=== PATIENT | female | born 1935 | race Caucasian/White ===

== ENCOUNTER 2021-07-19 15:24 | Observation (INO) | payer MEDICARE ==
[2021-07-19 16:01] LABS: #Basophils 0.1 10x3/uL (0.0-0.2); #Eosinphils 0.2 10x3/uL (0.0-0.5); #Monocytes 0.8 10x3/uL (0.0-1.1); #Neutrophils 6.2 10x3/uL (1.5-8.4); %Basophils 0.5 % (0.0-2.0); %Eosinophils 1.5 % (0.0-6.0); %Lymphocytes 27.4 % (18.0-47.0); %Monocytes 8.2 % (0.0-10.0); %Neutrophils 62.1 % (40.0-75.0); Hemoglobin 13.6 g/dL (12.0-15.5); Mean Corpuscular HGB CONC 33.4 g/dL (32.0-36.0); Mean Corpuscular Volume 89.8 fl (81.6-98.3); Platelet Count 202 10x3/uL (150-450); RBC Distribution Width 13.2 % (11.5-14.5); Red Blood Cell (RBC) Count 4.53 10x6/uL (3.90-5.03)
[2021-07-19 16:14] LABS: ALT (SGPT) 16 U/L (8-55); AST (SGOT) 20 U/L (5-34); Albumin 4.1 g/dL (3.4-4.8); Alkaline Phosphatase 64 U/L (40-110); Anion Gap 14 mmol/L (10-20); BUN (Urea Nitrogen) 13 mg/dL (9.8-20.1); Bilirubin, Total 0.3 mg/dL (0.2-1.2); Calc. Creatinine Clearance 0 mL/min (70-130); Calcium 9.5 mg/dL (7.8-10.44); Carbon Dioxide 25 mmol/L (23-31); Chloride 107 mmol/L (98-107); Globulin 2.6 g/dL (2.4-3.5); Glucose 103 mg/dL (83-110); Protein, Total 6.7 g/dL (5.8-8.1); Sodium 142 mmol/L (136-145)
[2021-07-19] MEDS ORDERED: Aspirin Chewable 81 MG TAB ONE (16:44)
[2021-07-19] MEDS ORDERED: Lorazepam 2 MG/ML VIAL ONE (16:45)
[2021-07-19 20:11] VITALS: BMI 28.0
[2021-07-19 20:23] LABS: SARS-CoV-2 NAA Rapid Test DETECTED (NotDetected)
[2021-07-19] MEDS ORDERED: Acetaminophen 325 MG TAB PO PRN (22:29)
[2021-07-19] MEDS ORDERED: Atorvastatin Calcium 40 MG TAB PO SCH (22:45)
[2021-07-19] MEDS ORDERED: Lisinopril 5 MG TAB PO SCH (23:00)
[2021-07-20 04:07] LABS: #Basophils 0.1 10x3/uL (0.0-0.2); #Eosinphils 0.2 10x3/uL (0.0-0.5); #Monocytes 0.8 10x3/uL (0.0-1.1); #Neutrophils 3.1 10x3/uL (1.5-8.4); %Basophils 0.9 % (0.0-2.0); %Eosinophils 3.3 % (0.0-6.0); %Lymphocytes 40.5 % (18.0-47.0); %Monocytes 10.7 % (0.0-10.0); %Neutrophils 44.5 % (40.0-75.0); Anion Gap 13 mmol/L (10-20); BUN (Urea Nitrogen) 11 mg/dL (9.8-20.1); Calc. Creatinine Clearance 62 mL/min (70-130); Calcium 8.5 mg/dL (7.8-10.44); Carbon Dioxide 22 mmol/L (23-31); Cardiac Risk 3.9 (Less than 4.5); Chloride 110 mmol/L (98-107); Cholesterol 223 mg/dl (< 200 Desired); Glucose 86 mg/dL (83-110); HDL Cholesterol 57 mg/dL (>60 Neg Risk); LDL Cholesterol, Calculated 145 mg/dL; Mean Corpuscular HGB CONC 33.1 g/dL (32.0-36.0); Mean Corpuscular Hemoglobin 29.6 pg (27.0-33.0); Mean Corpuscular Volume 89.2 fl (81.6-98.3); Mean Platelet Volume 11.5 fl (7.4-10.4); Platelet Count 177 10x3/uL (150-450); Potassium 3.8 mmol/L (3.5-5.1); RBC Distribution Width 13.5 % (11.5-14.5); Red Blood Cell (RBC) Count 4.06 10x6/uL (3.90-5.03); Sodium 141 mmol/L (136-145); Triglycerides 105 mg/dL (Less than 150)
[2021-07-20] MEDS ORDERED: Lorazepam 2 MG/ML VIAL SLOW IVP SCH (08:00)
[2021-07-20] MEDS ORDERED: Enoxaparin Sodium 40 MG/0.4 ML SYRINGE SC SCH ×2 (09:00)
[2021-07-20] MEDS ORDERED: Aspirin 81 mg Enteric Coated Tablet PO SCH (09:00)
[2021-07-20] MEDS ORDERED: Multivit, Therapeutic 1 TAB PO SCH (09:00)
[2021-07-20] MEDS ORDERED: Calcium Carbonate 600 MG TAB PO SCH (09:00)
[2021-07-20] MEDS ORDERED: Cholecalciferol (Vitamin D3) 400 UNITS TAB PO SCH (09:00)
[2021-07-20] MEDS ORDERED: Lisinopril 5 MG TAB PO SCH (09:00)
[2021-07-20 13:47] VITALS: BP 156/61; TEMP 97.9
[2021-07-20] MEDS ORDERED: Atorvastatin Calcium 40 MG TAB PO SCH (21:00)
== END 2021-07-20 15:16 | disposition home or self-care (01) ==
LOC: CSHERS 15:24 → INTOOBSV 15:25 → CSHTELE 15:25
PROVIDERS: ADMIT Family Medicine; ATTEND Hospitalist
DX: G45.9 Transient cerebral ischemic attack, unspecified (principal); U07.1 COVID-19; E78.5 Hyperlipidemia, unspecified; I10 Essential (primary) hypertension; Z79.899 Other long term (current) drug therapy
CPT/HCPCS: 70450; 70551; 71045; 80048; 80053; 80061; 82962; 83735; 84484; 85025 ×2; 93005 ×2; 93880; 96372; 96374; 96376; 99285; G0378 ×2; U0002; 36416; 93010; J1650; J2060